=== PATIENT | female | born 1935 | race Caucasian/White ===

== ENCOUNTER 2020-10-06 18:30 | Emergency (ER) | payer OTHER ==
[~2020-10-06] VITALS: Ht 154.9 cm; Wt 81.6 kg
[2020-10-06 18:37] VITALS: Ht 154.9 cm; Wt 81.6 kg
[2020-10-06 20:06] LABS: PLATELET COUNT 323 x10^3mcL (179-408); RED CELL DISTRIBUTION WIDTH 13.9 % (12.3-17.7)
[2020-10-06 20:24] LABS: CALCIUM 8.8 mg/dL (8.5-10.1); CARBON DIOXIDE 32.6 mmol/L (21-32); CHLORIDE SERUM 101 mmol/L (98-107); GLUCOSE SERUM 165 mg/dL (74-106); POTASSIUM SERUM 3.2 mmol/L (3.5-5.1); SODIUM SERUM 141 mmol/L (136-145)
[2020-10-06 20:27] LABS: BAND NEUTROPHIL 0 % (0-10); BASOPHIL 0 % (0-2); MONOCYTE 5 % (0-7); SEGMENTED NEUTROPHILS 72 % (37-75)
[2020-10-06 20:28] LABS: rbc morphology (normal/abnorm) NORMAL (NORMAL)
[2020-10-06 20:29] LABS: ALKALINE PHOSPHATASE 67 U/L (46-116); ALT/SGPT 26 U/L (14-59); AST/SGOT 34 U/L (15-37); BILIRUBIN TOTAL 0.4 mg/dL (0.20-1.00); TOTAL PROTEIN, SERUM 6.7 g/dL (6.4-8.2)
[2020-10-06 20:30] LABS: ALBUMIN 3.2 g/dL (3.4-5.0)
[2020-10-07 00:03] VITALS: BP 134/54
== END 2020-10-07 00:03 | disposition home or self-care (01) ==
LOC: ED 18:30
PROVIDERS: Emergency Medicine
DX: S00.83XA Contusion of other part of head, initial encounter (principal); S00.12XA Contusion of left eyelid and periocular area, initial encounter; E87.6 Hypokalemia; R19.7 Diarrhea, unspecified; M25.512 Pain in left shoulder; I10 Essential (primary) hypertension; E11.9 Type 2 diabetes mellitus without complications; Z88.0 Allergy status to penicillin; Z20.822 Contact with and (suspected) exposure to COVID-19; W18.39XA Other fall on same level, initial encounter; Y93.89 Activity, other specified; Y92.89 Other specified places as the place of occurrence of the external cause; Y99.8 Other external cause status
CPT/HCPCS: J7030; U0003

== ENCOUNTER 2020-10-07 19:51 | Emergency (ER) | payer OTHER ==
[~2020-10-07] VITALS: Ht 167.6 cm; Wt 104.3 kg
[2020-10-07 20:01] VITALS: Ht 167.6 cm; Wt 104.3 kg
[2020-10-07 21:08] LABS: BASOPHIL % 0.7 % (0.2-1.3); PLATELET COUNT 316 x10^3mcL (179-408); RED CELL DISTRIBUTION WIDTH 14.1 % (12.3-17.7)
[2020-10-07 21:12] LABS: CALCIUM 8.6 mg/dL (8.5-10.1); CARBON DIOXIDE 29.2 mmol/L (21-32); CHLORIDE SERUM 101 mmol/L (98-107); CREATININE SERUM 0.9 mg/dL (0.6-1.0); GLUCOSE SERUM 159 mg/dL (74-106); POTASSIUM SERUM 3.5 mmol/L (3.5-5.1); SODIUM SERUM 142 mmol/L (136-145)
[2020-10-07 21:25] LABS: ALBUMIN 3.2 g/dL (3.4-5.0); ALKALINE PHOSPHATASE 62 U/L (46-116); ALT/SGPT 32 U/L (14-59); AST/SGOT 52 U/L (15-37); BILIRUBIN TOTAL 0.62 mg/dL (0.20-1.00); TOTAL PROTEIN, SERUM 6.9 g/dL (6.4-8.2)
[2020-10-08 03:36] VITALS: BP 116/78
== END 2020-10-08 03:36 | disposition home or self-care (01) ==
LOC: ED 19:51
PROVIDERS: Emergency Medicine
DX: K80.20 Calculus of gallbladder without cholecystitis without obstruction (principal); K86.2 Cyst of pancreas; R74.01 Elevation of levels of liver transaminase levels; E11.65 Type 2 diabetes mellitus with hyperglycemia; I10 Essential (primary) hypertension; Z88.0 Allergy status to penicillin; Z88.8 Allergy status to other drugs, medicaments and biological substances
CPT/HCPCS: J7030; Q9967; U0003